=== PATIENT | female | born 1985 | race American Indian/Alaskan Native ===

== ENCOUNTER 2016-11-12 17:15 | Emergency (ER) | payer MEDICAID ==
[2016-11-12 17:20] VITALS: BP 135/94
--- NOTE | 2016-11-12 17:42 | Emergency Department Report ---
- General Chief Complaint: Upper Respiratory Infection Stated Complaint: SINUS INFECTION Time Seen by Provider: 11/12/16 17:37 Source: patient Mode of arrival: Ambulatory Limitations: No Limitations - History of Present Illness MD Complaint: nasal congestion, sinus pain - Related Data Previous Rx's Medication Instructions Recorded Last Taken Type Amoxicillin [Amoxicillin TAB] 875 mg PO BID #20 tablet 11/12/16 Unknown Rx methylPREDNISolone [Medrol] 4 mg PO QAM #1 tab.ds.pk 11/12/16 Unknown Rx Allergies Allergy/AdvReac Type Severity Reaction Status Date / Time Iodinated Contrast Media - Allergy Hives Verified 11/12/16 17:17 IV Dye ED Review of Systems ROS: Stated complaint: SINUS INFECTION Other details as noted in HPI Constitutional: denies: chills, fever Eyes: denies: eye pain, eye discharge, vision change ENT: ear pain. denies: throat pain Respiratory: denies: cough, shortness of breath, wheezing Cardiovascular: denies: chest pain, palpitations Endocrine: no symptoms reported Gastrointestinal: denies: abdominal pain, nausea, diarrhea Genitourinary: denies: urgency, dysuria, discharge Musculoskeletal: denies: back pain, joint swelling, arthralgia Skin: denies: rash, lesions Neurological: denies: headache, weakness, paresthesias Psychiatric: denies: anxiety, depression Hematological/Lymphatic: denies: easy bleeding, easy bruising ED Past Medical Hx - Past Medical History Previous Medical History?: No - Surgical History Past Surgical History?: No - Social History Smoking Status: Never Smoker Substance Use Type: None - Medications Home Medications: Home Medications Medication Instructions Recorded Confirmed Last Taken Type Amoxicillin [Amoxicillin TAB] 875 mg PO BID #20 tablet 11/12/16 Unknown Rx methylPREDNISolone [Medrol] 4 mg PO QAM #1 tab.ds.pk 11/12/16 Unknown Rx ED Physical Exam - General Limitations: No Limitations General appearance: alert, in no apparent distress - Head Head exam: Present: atraumatic, normocephalic - Eye Eye exam: Present: normal appearance, PERRL, EOMI - ENT ENT exam: Present: mucous membranes moist, other - Neck Neck exam: Present: normal inspection, lymphadenopathy. Absent: tenderness, meningismus, full ROM - Respiratory Respiratory exam: Present: normal lung sounds bilaterally. Absent: respiratory distress, wheezes, rales, rhonchi, stridor - Cardiovascular Cardiovascular Exam: Present: regular rate, normal rhythm. Absent: systolic murmur, diastolic murmur, rubs, gallop - GI/Abdominal GI/Abdominal exam: Present: soft, normal bowel sounds - Extremities Exam Extremities exam: Present: normal inspection - Back Exam Back exam: Present: normal inspection - Neurological Exam Neurological exam: Present: alert, oriented X3 - Psychiatric Psychiatric exam: Present: normal affect, normal mood - Skin Skin exam: Present: warm, dry, intact, normal color. Absent: rash ED Course Vital Signs 11/12/16 17:17 Temperature 98.1 F Pulse Rate 101 H Respiratory 16 Rate Blood Pressure 135/94 O2 Sat by Pulse 99 Oximetry Critical care attestation.: If time is entered above; I have spent that time in minutes in the direct care of this critically ill patient, excluding procedure time. ED Disposition Clinical Impression: Sinusitis Disposition: DISCHARGED TO HOME OR SELFCARE Is pt being admited?: No Condition: Stable Instructions: Sinusitis (ED) Referrals: MICKEY HICKS MD [Staff Physician] - 3-5 Days
== END 2016-11-12 17:59 | disposition home or self-care (01) ==
LOC: ED 17:15
DX: J32.9 Chronic sinusitis, unspecified (principal); Z91.041 Radiographic dye allergy status
CPT/HCPCS: 99282